=== PATIENT | female | born 1975 | race Caucasian/White ===

== ENCOUNTER 2017-07-28 03:07 | Emergency (ER) | payer OTHER ==
[~2017-07-28] VITALS: Ht 165.1 cm; Wt 61.2 kg
[~2017-07-28 03:07] MED LIST: DIAZEPAM 10 MG10 M2 PO; GABAPENTIN 100100 MG PO; NAPROSYN500 MG PO; SEROQUEL 50 MG50 MG PO; VITAMIN D 5050000 I1 PO
[2017-07-28 04:39] LABS: ABSOLUTE NEUTROPHILS 4.7 thou/uL (1.4-8.2); BASOPHILS 1.3 % (0.0-2.0); HEMATOCRIT 38.3 % (37.0-47.0); HEMOGLOBIN 12.2 gm/dL (12.0-15.0); LYMPHOCYTES 25.9 % (24.0-44.0); MCH 26.8 pg (26.0-34.0); MCHC 31.9 g/dL (28.0-37.0); MCV 84.2 fL (80.0-100.0); MONOCYTES 7.9 % (1.0-8.0); PLATELET COUNT 328 thou/uL (150-400); POLYS 63.9 % (36.0-66.0); RBC 4.55 mil/uL (4.20-5.00); WBC 7.4 thou/uL (4.0-11.0)
[2017-07-28 04:42] LABS: CREATININE 0.8 mg/dL (0.6-1.0); POTASSIUM 3.9 mmol/L (3.5-5.1)
[2017-07-28] MEDS ORDERED: NORCO 5-325 TA1 EACH PO (05:03)
[2017-07-28] MEDS ORDERED: NAPROSYN500 MG PO (05:03)
[2017-07-28] MEDS ORDERED: SENNA-DOCUSATE1 EACH PO (05:03)
[2017-07-28 05:28] VITALS: BP 110/83
== END 2017-07-28 05:37 | disposition home or self-care (01) ==
LOC: ER 03:07
PROVIDERS: Emergency Medicine
DX: S70.01XA Contusion of right hip, initial encounter (principal); Z90.49 Acquired absence of other specified parts of digestive tract; Z88.0 Allergy status to penicillin; Y08.89XA Assault by other specified means, initial encounter; Y93.89 Activity, other specified; Y92.89 Other specified places as the place of occurrence of the external cause; Y99.8 Other external cause status